=== PATIENT | male | born 1995 | race Two or more races ===

== ENCOUNTER 2018-02-25 13:22 | Emergency (ER) | payer SELFPAY ==
[~2018-02-25] VITALS: Ht 193 cm; Wt 88.6 kg
[2018-02-25 13:40] VITALS: Ht 193 cm; Wt 88.6 kg
[2018-02-25] MEDS ORDERED: TAMIFLU75 MG PO (16:53)
[2018-02-25] MEDS ORDERED: VENTOLIN HFA18 GM INH (16:53)
[2018-02-25] MEDS ORDERED: PROMETHAZINE W473 ML PO (16:53)
[2018-02-25 17:10] VITALS: BP 110/71
== END 2018-02-25 17:10 | disposition home or self-care (01) ==
LOC: D.ER 13:22
DX: J11.1 Influenza due to unidentified influenza virus with other respiratory manifestations (principal); J20.9 Acute bronchitis, unspecified; R09.89 Other specified symptoms and signs involving the circulatory and respiratory systems; R51 Headache; R50.9 Fever, unspecified; F17.200 Nicotine dependence, unspecified, uncomplicated

== ENCOUNTER 2018-05-14 10:28 | Emergency (ER) | payer OTHER ==
[~2018-05-14] VITALS: Ht 193 cm; Wt 87.7 kg
[~2018-05-14 10:28] MED LIST: PROMETHAZINE W473 ML PO; TAMIFLU75 MG PO; VENTOLIN HFA18 GM INH
[2018-05-14 10:49] VITALS: Ht 193 cm; Wt 87.7 kg
[2018-05-14] MEDS ORDERED: BACTRIM 400-801 TAB PO (11:37)
[2018-05-14 11:58] VITALS: BP 113/78
== END 2018-05-14 11:59 | disposition home or self-care (01) ==
LOC: D.ER 10:28
DX: L02.31 Cutaneous abscess of buttock (principal)